=== PATIENT | female | born 1995 | race Caucasian/White ===

== ENCOUNTER 2019-12-19 19:55 | Emergency (ER) | payer OTHER ==
[~2019-12-19] VITALS: Ht 162.6 cm; Wt 72.6 kg
[~2019-12-19 19:55] MED LIST: CIPROFLOXACIN500 M1 PO; NOHOMEMEDICATIONS; PEPCID40 MG PO; PHENERGAN 25 MG25 M1 PO; TOBREX3.5 GM OP; TRINATE TABLET1 TAB PO; ULTRAM 50MG TAB50 MG PO
[2019-12-19 19:56] VITALS: BP 131/81
[2019-12-19] MEDS ORDERED: APAP650 PO (20:06)
[2019-12-19 20:19] LABS: URINE BILIRUBIN 2+ (Negative); URINE BLOOD 3+ (Negative); URINE CLARITY CLEAR; URINE COLOR YELLOW; URINE GLUCOSE-RANDOM NEGATIVE (Negative); URINE KETONES NEGATIVE (Negative); URINE LEUKOCYTES-REFLEX TRACE (Negative); URINE NITRITE-REFLEX POSITIVE (Negative); URINE PROTEIN 2+ (Negative); URINE SPECIFIC GRAVITY >= 1.030 (1.005-1.030); URINE UROBILINOGEN 0.2 E.U./dl (0.2-1.0)
[2019-12-19 20:21] LABS: ICTOTEST (BILI CONFIRMATORY) Positive (Negative)
[2019-12-19 20:27] LABS: BACTERIA-REFLEX >30 Many /HPF (None Seen); CASTS None Seen /LPF (None Seen); CRYSTALS None Seen /LPF (None Seen); MUCUS 4-6 Moderate strn/LPF (None Seen); SQUAMOUS 4-10 Moderate /LPF (0-3); URINE RBC 3-10 Few /HPF (0-2)
[2019-12-19 20:29] LABS: AMP/METHAMP POSITIVE (Negative); BARBITURATES Negative (Negative); BENZODIAZEPINES Negative (Negative); COCAINE Negative (Negative); METHADONE Negative (Negative); OPIATES Negative (Negative); PCP Negative (Negative); THC POSITIVE (Negative); WBC CLUMPS Few (None Seen)
[2019-12-19] MEDS ORDERED: FLAGYL500 M1 PO (20:45)
[2019-12-19] MEDS ORDERED: BACTRIM DS TAB1 EACH PO (20:45)
== END 2019-12-19 20:56 | disposition home or self-care (01) ==
LOC: M.ERS 19:55
PROVIDERS: Emergency Medicine
DX: S50.12XA Contusion of left forearm, initial encounter (principal); S80.212A Abrasion, left knee, initial encounter; S70.312A Abrasion, left thigh, initial encounter; S60.812A Abrasion of left wrist, initial encounter; S40.811A Abrasion of right upper arm, initial encounter; N39.0 Urinary tract infection, site not specified; A59.9 Trichomoniasis, unspecified; V03.99XA Pedestrian with other conveyance injured in collision with car, pick-up truck or van, unspecified whether traffic or nontraffic accident, initial encounter; Y93.89 Activity, other specified; Y92.89 Other specified places as the place of occurrence of the external cause; Y99.8 Other external cause status

== ENCOUNTER 2019-12-19 21:41 | Emergency (ER) | payer OTHER ==
[~2019-12-19 21:41] MED LIST changes: +APAP650 PO; +BACTRIM DS TAB1 EACH PO; +FLAGYL500 M1 PO
== END 2019-12-19 22:24 | disposition left against medical advice (07) ==
LOC: M.ERS 21:41
DX: Z53.21 Procedure and treatment not carried out due to patient leaving prior to being seen by health care provider (principal)

== ENCOUNTER 2020-04-07 21:05 | Emergency (ER) | payer OTHER ==
[~2020-04-07] VITALS: Ht 162.6 cm; Wt 77.1 kg
== END 2020-04-07 22:25 ==
LOC: M.ERS 21:05
DX: F24 Shared psychotic disorder (principal)

== ENCOUNTER 2020-05-26 21:55 | Emergency (ER) | payer OTHER, MEDICAID ==
[~2020-05-26] VITALS: Ht 172.7 cm; Wt 59.0 kg
[2020-05-26 23:07] LABS: HEMOGLOBIN 13.1 gm/dL (12.0-15.0); MCH 30.7 pg (26.0-34.0); MCHC 33.7 g/dL (28.0-37.0); MPV 8.8 fl. (7.2-11.1); RBC 4.28 mil/uL (4.20-5.00); RDW-CV 13.6 % (10.5-14.5); WBC 11.5 thou/uL (4.0-11.0)
[2020-05-26 23:15] LABS: URINE BILIRUBIN NEGATIVE (Negative); URINE BLOOD 2+ (Negative); URINE COLOR YELLOW; URINE GLUCOSE-RANDOM NEGATIVE (Negative); URINE KETONES NEGATIVE (Negative); URINE LEUKOCYTES 1+ (Negative); URINE NITRITE POSITIVE (Negative); URINE PROTEIN TRACE (Negative); URINE SPECIFIC GRAVITY >= 1.030 (1.005-1.030); URINE UROBILINOGEN 0.2 E.U./dl (0.2-1.0)
[2020-05-26 23:17] LABS: BACTERIA >30 Many /HPF (None Seen); COARSE GRANULAR CASTS 0-3 Few /LPF (None Seen); CRYSTALS None Seen /LPF (None Seen); FINE GRANULAR CASTS 0-3 Few /LPF (None Seen); HYALINE CASTS 0-3 Few /LPF (None Seen); MUCUS 4-6 Moderate strn/LPF (None Seen); SQUAMOUS 0-3 Few /LPF (0-3); TRANSITIONAL EPITHEL CELL 0-3 Few /LPF (None Seen); URINE CLARITY CLOUDY; URINE WBC >25 Many /HPF (0-5); WBC CLUMPS Moderate (None Seen)
[2020-05-26 23:20] LABS: CALCIUM 8.5 mg/dL (8.5-10.1); CREATININE 0.9 mg/dL (0.6-1.3); POTASSIUM 3.3 mmol/L (3.5-5.1)
[2020-05-26 23:25] LABS: AMP/METHAMP POSITIVE (Negative); BARBITURATES Negative (Negative); BENZODIAZEPINES Negative (Negative); COCAINE Negative (Negative); METHADONE Negative (Negative); OPIATES Negative (Negative); PCP Negative (Negative); THC POSITIVE (Negative)
[2020-05-26 23:25] LABS: ALBUMIN 3.3 g/dL (3.4-5.0); TOTAL BILIRUBIN 0.7 mg/dL (<0.1-1.0); TOTAL PROTEIN 7.1 g/dL (6.4-8.2)
[2020-05-26 23:27] LABS: SALICYLATE 3.7 mg/dL (2.8-20.0)
[2020-05-26 23:28] LABS: ACETAMINOPHEN < 2 ug/mL (10-30); ALCOHOL < 10 mg/dL (<10)
[2020-05-27 19:45] VITALS: BP 99/69
== END 2020-05-27 19:45 ==
LOC: M.ERS 21:55
PROVIDERS: Personal Emergency Response Attendant
DX: R45.851 Suicidal ideations (principal); Z20.828 Contact with and (suspected) exposure to other viral communicable diseases; F29 Unspecified psychosis not due to a substance or known physiological condition; F15.10 Other stimulant abuse, uncomplicated

== ENCOUNTER 2020-06-07 20:53 | Emergency (ER) | payer OTHER, MEDICAID ==
[~2020-06-07] VITALS: Ht 160 cm; Wt 63.5 kg
[2020-06-08 00:50] VITALS: BP 119/67
== END 2020-06-08 00:55 ==
LOC: M.ERS 20:53
DX: S01.511A Laceration without foreign body of lip, initial encounter (principal); F15.90 Other stimulant use, unspecified, uncomplicated; V43.52XA Car driver injured in collision with other type car in traffic accident, initial encounter; Y93.I9 Activity, other involving external motion; Y92.488 Other paved roadways as the place of occurrence of the external cause; Y99.8 Other external cause status

== ENCOUNTER → 2020-06-07 | Emergency (ER) | payer OTHER, MEDICAID | LOC: M.ERS 21:54 | DX: Z02.89 Encounter for other administrative examinations (principal) ==

== ENCOUNTER 2020-08-03 12:10 | Emergency (ER) | payer OTHER, MEDICAID ==
[~2020-08-03] VITALS: Ht 162.6 cm; Wt 72.6 kg
[2020-08-03 12:58] LABS: ABSOLUTE BASOPHILS 0.1 thou/uL (0.0-0.2); ABSOLUTE EOSINOPHILS 0.1 thou/uL (0.0-0.7); ABSOLUTE LYMPHOCYTES 2.2 thou/uL (0.8-5.3); ABSOLUTE MONOCYTES 0.5 thou/uL (0.0-1.2); ABSOLUTE NEUTROPHILS 8.9 thou/uL (1.6-8.1); BASOPHILS 0.5 %; HEMATOCRIT 48.2 % (37.0-47.0); HEMOGLOBIN 16.1 gm/dL (12.0-15.0); LYMPHOCYTES 18.4 %; MCH 30.8 pg (26.0-34.0); MCHC 33.5 g/dL (28.0-37.0); MONOCYTES 4.5 %; MPV 8.8 fl. (7.2-11.1); NUCLEATED RBCS 0 /100WBC; PLATELET COUNT* 191 thou/uL (150-400); POLYS 75.6 %; RBC 5.24 mil/uL (4.20-5.00); RDW-CV 14.1 % (10.5-14.5); WBC 11.7 thou/uL (4.0-11.0)
[2020-08-03 13:09] LABS: CALCIUM 9.4 mg/dL (8.5-10.1); CREATININE 0.8 mg/dL (0.6-1.3)
[2020-08-03 13:14] LABS: ALBUMIN 3.9 g/dL (3.4-5.0); TOTAL BILIRUBIN 0.3 mg/dL (<0.1-1.0); TOTAL PROTEIN 7.9 g/dL (6.4-8.2)
[2020-08-03 13:20] LABS: ACETAMINOPHEN < 2 ug/mL (10-30); ALCOHOL < 10 mg/dL (<10)
[2020-08-03 14:08] LABS: URINE BILIRUBIN NEGATIVE (Negative); URINE BLOOD TRACE (Negative); URINE CLARITY CLOUDY; URINE COLOR YELLOW; URINE GLUCOSE-RANDOM NEGATIVE (Negative); URINE KETONES NEGATIVE (Negative); URINE LEUKOCYTES 3+ (Negative); URINE NITRITE NEGATIVE (Negative); URINE PROTEIN NEGATIVE (Negative); URINE SPECIFIC GRAVITY 1.015 (1.005-1.030); URINE UROBILINOGEN 0.2 E.U./dl (0.2-1.0)
[2020-08-03 14:17] LABS: CASTS None Seen /LPF (None Seen); CRYSTALS None Seen /LPF (None Seen); MUCUS >6 Heavy strn/LPF (None Seen); SQUAMOUS >10 Many /LPF (0-3); URINE RBC None Seen /HPF (0-2)
[2020-08-03 14:18] LABS: AMP/METHAMP POSITIVE (Negative); BARBITURATES Negative (Negative); BENZODIAZEPINES Negative (Negative); COCAINE Negative (Negative); METHADONE Negative (Negative); OPIATES Negative (Negative); PCP Negative (Negative); THC POSITIVE (Negative)
[2020-08-03] MEDS ORDERED: NORCO5 PO (14:47)
[2020-08-03] MEDS ORDERED: NAPROSYN500 MG PO (14:47)
[2020-08-03 15:15] VITALS: BP 129/88
== END 2020-08-03 15:17 | disposition home or self-care (01) ==
LOC: M.ERS 12:10
PROVIDERS: Emergency Medicine
DX: S62.316A Displaced fracture of base of fifth metacarpal bone, right hand, initial encounter for closed fracture (principal); F15.10 Other stimulant abuse, uncomplicated; R45.4 Irritability and anger; X58.XXXA Exposure to other specified factors, initial encounter; Y93.89 Activity, other specified; Y92.89 Other specified places as the place of occurrence of the external cause; Y99.8 Other external cause status

== ENCOUNTER 2020-08-17 17:03 | Emergency (ER) | payer OTHER, MEDICAID ==
[~2020-08-17] VITALS: Ht 160 cm; Wt 79.7 kg
[~2020-08-17 17:03] MED LIST changes: +NAPROSYN500 MG PO; +NORCO5 PO
[2020-08-17 17:46] LABS: URINE BILIRUBIN NEGATIVE (Negative); URINE BLOOD 2+ (Negative); URINE CLARITY CLOUDY; URINE COLOR YELLOW; URINE GLUCOSE-RANDOM NEGATIVE (Negative); URINE KETONES NEGATIVE (Negative); URINE LEUKOCYTES 3+ (Negative); URINE NITRITE NEGATIVE (Negative); URINE PROTEIN TRACE (Negative); URINE UROBILINOGEN 0.2 E.U./dl (0.2-1.0)
[2020-08-17 17:54] LABS: AMP/METHAMP POSITIVE (Negative); BARBITURATES Negative (Negative); BENZODIAZEPINES Negative (Negative); COCAINE Negative (Negative); METHADONE Negative (Negative); OPIATES Negative (Negative); PCP Negative (Negative); THC POSITIVE (Negative)
[2020-08-17 17:58] LABS: SQUAMOUS 4-10 Moderate /LPF (0-3)
[2020-08-17 17:59] LABS: BACTERIA >30 Many /HPF (None Seen); CASTS None Seen /LPF (None Seen); CRYSTALS None Seen /LPF (None Seen); MUCUS 4-6 Moderate strn/LPF (None Seen); URINE RBC 0-2 Rare /HPF (0-2)
[2020-08-17 18:12] LABS: ABSOLUTE BASOPHILS 0.1 thou/uL (0.0-0.2); ABSOLUTE EOSINOPHILS 0.2 thou/uL (0.0-0.7); ABSOLUTE LYMPHOCYTES 4.1 thou/uL (0.8-5.3); ABSOLUTE NEUTROPHILS 7.7 thou/uL (1.6-8.1); BASOPHILS 0.8 %; EOSINOPHILS 1.3 %; HEMOGLOBIN 14.9 gm/dL (12.0-15.0); LYMPHOCYTES 31.3 %; MCH 30.7 pg (26.0-34.0); MCHC 33.9 g/dL (28.0-37.0); MCV 90.4 fL (80.0-100.0); MONOCYTES 7.4 %; MPV 7.9 fl. (7.2-11.1); NUCLEATED RBCS 0 /100WBC; PLATELET COUNT* 252 thou/uL (150-400); POLYS 59.2 %; RBC 4.87 mil/uL (4.20-5.00); RDW-CV 13.9 % (10.5-14.5); WBC 13.1 thou/uL (4.0-11.0)
[2020-08-17 18:22] LABS: CALCIUM 9.3 mg/dL (8.5-10.1); CREATININE 0.8 mg/dL (0.6-1.3); POTASSIUM 3.9 mmol/L (3.5-5.1)
[2020-08-17 18:31] LABS: ALBUMIN 3.8 g/dL (3.4-5.0); DIRECT BILIRUBIN 0.1 mg/dL (<0.1-0.3); MAGNESIUM 2.2 mg/dL (1.8-2.4); PHOSPHORUS* 3.7 mg/dL (2.5-4.9); TOTAL BILIRUBIN 0.4 mg/dL (<0.1-1.0); TOTAL PROTEIN 7.9 g/dL (6.4-8.2)
[2020-08-17 18:32] LABS: ACETAMINOPHEN < 2 ug/mL (10-30); ALCOHOL < 10 mg/dL (<10); SALICYLATE 6.2 mg/dL (2.8-20.0)
[2020-08-18 00:30] VITALS: BP 92/50
--- NOTE | 2020-08-18 15:30 | EKG ---
[place] [address] ELECTROCARDIOGRAM REPORT Name: SULTANA ESCOBAR Room: [facility]#: [id number] Admission: 08/17/20 Attend Phys: Discharge: 08/18/20 Date of : [birth year] Date of Service: 08/17/20 1746 Report #: [id number] THIS REPORT FOR: //name// [facility] ED Test Date: 2020-08-17 Test Time: 17:46:51 Pat Name: SULTANA ESCOBAR Department: Room: Gender: [employer] Supervisor: MER : 1995 Requested By: Macario Leiva Order Number: [id number] MD: Vincenzo Morrissey Measurements Intervals Berger Rate: 101 P: 72 DE: 146 QRS: 68 QRSD: 87 T: 48 QT: 332 QTc: 431 Interpretive Statements Sinus tachycardia with sinus arrhythmia Baseline wander in lead(s) V1,V3,V4 No previous ECG available for comparison Electronically Signed On 08-18-2020 15:30:20 [employer]OPSY ASSISTANT by Vincenzo Morrissey [email or web address] <ELECTRONICALLY SIGNED> By: Vincenzo Morrissey MD, [facility] 08/18/20 1530 1746 1746 Vincenzo Morrissey MD, [facility] /EPI
== END 2020-08-18 00:30 ==
LOC: M.ERS 17:03
PROVIDERS: Emergency Medicine
DX: F23 Brief psychotic disorder (principal); F15.959 Other stimulant use, unspecified with stimulant-induced psychotic disorder, unspecified; Z20.822 Contact with and (suspected) exposure to COVID-19; Z79.899 Other long term (current) drug therapy

== ENCOUNTER 2020-10-08 22:42 | Emergency (ER) | payer OTHER, MEDICAID ==
[~2020-10-08] VITALS: Ht 170.2 cm; Wt 79.4 kg
[2020-10-08 23:35] VITALS: BP 124/80
== END 2020-10-08 23:35 ==
LOC: M.ERS 22:42
DX: S60.221A Contusion of right hand, initial encounter (principal); R07.81 Pleurodynia; F17.210 Nicotine dependence, cigarettes, uncomplicated; W18.39XA Other fall on same level, initial encounter; Y93.89 Activity, other specified; Y92.89 Other specified places as the place of occurrence of the external cause; Y99.8 Other external cause status